=== PATIENT | male | born 1985 | race Caucasian/White ===

== ENCOUNTER 2021-10-25 14:31 | Emergency (ER) | payer BC ==
[2021-10-25] MEDS ORDERED: LORazepam 0.5 MG Tab PO ONE (15:49)
== END 2021-10-25 16:45 | disposition home or self-care (01) ==
LOC: JD.ED 14:31
DX: F41.0 Panic disorder [episodic paroxysmal anxiety] (principal)
CPT/HCPCS: 99283; A9270; 99282